=== PATIENT | female | born 1945 | race Caucasian/White ===

== ENCOUNTER 2018-11-13 15:17 | Emergency (ER) | payer MEDICARE, OTHER ==
[~2018-11-13] VITALS: Ht 152.4 cm; Wt 76.0 kg
[~2018-11-13 15:17] MED LIST: CEPH-443 PO; HC30CR25 TOP; IBUP-1561 PO; PRED20TA PO; SULF1TAB31 PO
[2018-11-13 15:22] VITALS: BP 147/71; PULSE 105; RESP 18; Ht 152.4 cm; Wt 76.0 kg
== END 2018-11-13 15:36 | disposition home or self-care (01) ==
LOC: E/R 15:17
DX: S60.465A Insect bite (nonvenomous) of left ring finger, initial encounter (principal); L08.9 Local infection of the skin and subcutaneous tissue, unspecified; W57.XXXA Bitten or stung by nonvenomous insect and other nonvenomous arthropods, initial encounter; Y92.9 Unspecified place or not applicable
CPT/HCPCS: 99282

== ENCOUNTER 2018-11-17 17:25 | Emergency (ER) | payer MEDICARE, OTHER ==
[~2018-11-17] VITALS: Ht 152.4 cm; Wt 76.7 kg
[2018-11-17 17:30] VITALS: BP 157/78; PULSE 92; RESP 18; Ht 152.4 cm; Wt 76.7 kg
[2018-11-17] MEDS ORDERED: CEFTRIAXONE 1 GM/50 ML (PMX) 50 ML IVPB ONE (18:30)
[2018-11-17] MEDS ORDERED: DEXAMETHASONE 10 MG/ML 1 ML INJ IV ONE (18:30)
== END 2018-11-17 19:20 | disposition home or self-care (01) ==
LOC: FTE 17:25
DX: L03.012 Cellulitis of left finger (principal); I10 Essential (primary) hypertension; E11.9 Type 2 diabetes mellitus without complications
CPT/HCPCS: 96365; 96375; 99284; J0696; J1100